=== PATIENT | female | born 1940 | race Caucasian/White ===

== ENCOUNTER → 2020-05-15 11:16 | Outpatient (CLI) | payer MEDICARE, OTHER, SELFPAY ==
--- NOTE | 2020-05-15 | DI.MRI.S_ITS ---
PROCEDURE: MR KNEE RT WO CON INDICATIONS: Bilateral primary osteoarthritis of knee TECHNIQUE: Noncontrast sagittal PD fast spin echo and T2 fast spin echo with fat saturation, sagittal 3-D FLASH with fat saturation; coronal T1 spin echo and PD fast spin echo with fat saturation, and axial PD fast spin echo with fat saturation through the knee. COMPARISON: None. FINDINGS: Image quality: Excellent. Menisci: Medial meniscal tear involving the body with abnormal signal extending to the undersurface, superior articular surface and partial extrusion. Lateral meniscus intact. Cruciate ligaments: Anterior cruciate ligament appears intact. Posterior cruciate ligament appears intact. Medial structures: There is medial bowing of the medial collateral ligament, with mild internal signal changes and no complete rupture. There is adjacent soft tissue edema. The appearance could reflect reactive changes to medial compartment pathology, versus low-grade sprain of the MCL. Pes anserinus tendons appear grossly unremarkable. Semimembranosus tendon appears intact. Lateral structures: The lateral collateral ligament intact. Biceps femoris tendon appears intact. Popliteus tendon grossly unremarkable. Iliotibial band appears intact. Anterior structures: Quadriceps tendon intact. Medial and lateral patellofemoral ligaments intact. Mild diffuse patellar tendinopathy with adjacent soft tissue edema. Hoffa's fat pad unremarkable. Bones and cartilage: No focal marrow contusion or discrete low signal fracture line. Within the medial compartment, full-thickness femoral and tibial articular cartilage loss with subchondral marrow edema. Within the lateral compartment, diffuse partial-thickness loss of the femoral and tibial cartilage with intrasubstance signal changes of the central weight-bearing cartilage of the femoral condyle. Within the patellofemoral compartment, full-thickness loss of the cartilage overlying the median patellar ridge and medial patellar facet. Mild subchondral marrow signal changes. Mild surface fraying of the femoral trochlear cartilage. Joint space: Small joint effusion. 6-7 Ballesteros's cyst. Low signal presumed loose body seen within Ballesteros's cyst image 23/6 measuring 5 mm. Possible debris seen within the suprapatellar recess, for example image 15/6. IMPRESSION: Medial meniscal tear involving the body with partial extrusion. Severe degenerative joint disease most pronounced in the medial and patellofemoral compartments. Small joint effusion Large Ballesteros's cyst Loose bodies and/or debris seen within the Ballesteros's cyst and suprapatellar recess as above. Dictated by: Arsenio Chavez M.D. on 05/15/2020 at 14:13 Approved by: Arsenio Chavez M.D. on 05/15/2020 at 14:22
== END ==
PROVIDERS: Family Provider Family Medicine; PCP Family Medicine; Referring Provider Orthopaedic Surgery; Visit Provider Orthopaedic Surgery
DX: M17.0 Bilateral primary osteoarthritis of knee (principal); S83.241A Other tear of medial meniscus, current injury, right knee, initial encounter; M25.461 Effusion, right knee; M71.21 Synovial cyst of popliteal space [Baker], right knee
CPT/HCPCS: 73721

== ENCOUNTER → 2021-01-17 12:58 | Outpatient (CLI) | payer MEDICARE, OTHER, SELFPAY ==
[2021-01-17 15:47] LABS: COVID19 -Nasal RAPID Negative (Negative)
== END ==
PROVIDERS: Family Provider Family Medicine; PCP Family Medicine; Visit Provider Family Medicine
DX: Z01.812 Encounter for preprocedural laboratory examination (principal); Z20.822 Contact with and (suspected) exposure to COVID-19
CPT/HCPCS: 87635; C9803

== ENCOUNTER 2021-01-18 09:30 | Day surgery (SDC) | payer MEDICARE, OTHER, SELFPAY ==
[2021-01-15 09:37] VITALS: BMI 26.5
[2021-01-18] VITALS (17 sets, daily range): BP systolic 96–143; BP diastolic 48–78; PULSE 62–77; RESP 12–18; TEMP 35.7–36.9; O2SAT 91–98; BMI 26.5
--- NOTE | 2021-01-18 | DI.RAD.S_ITS ---
PROCEDURE: XR HIP W PEL IF DONE LT 2V INDICATIONS: POST OP TECHNIQUE: AP pelvis with lateral view(s) of the left hip(s). COMPARISON: [facility], JOSE JUAN, XR PELVIS 1-2V, 01/18/2021, 14:02. FINDINGS: Bones: Status post bilateral hip arthroplasty. Hip arthroplasties appear normally. No fractures or dislocations. Pelvic ring appears intact. No suspicious bony lesions. Soft tissues: The visualized bowel gas pattern is normal. No suspicious soft tissue calcifications. IMPRESSION: Expected appearance of bilateral hip arthroplasties. Dictated by: Keenan Painting M.D. on 01/18/2021 at 16:25 Approved by: Keenan Painting M.D. on 01/18/2021 at 16:26
--- NOTE | 2021-01-18 | DI.RAD.S_ITS ---
PROCEDURE: XR PELVIS 1-2V INDICATIONS: INTER OP TECHNIQUE: Intra-operative view of the pelvis and hip acquired. COMPARISON: None. FINDINGS: Bones: Intraoperative devices prior to placement of arthroplasty prostheses are in expected positions. No fractures or suspicious bony lesions. Soft tissues: Overlying surgical retractors are present, along with other intraoperative changes. IMPRESSION: Expected intraoperative alignment Dictated by: Arsenio Chavez M.D. on 01/18/2021 at 15:53 Approved by: Arsenio Chavez M.D. on 01/18/2021 at 15:53
[2021-01-18] MEDS: LACTATED RINGERS 1,000 ML 42 ML IV ×2 (10:39→14:34)
[2021-01-18] MEDS: VANCOMYCIN 1,000 MG/200 ML PIGGYBACK 200 MG IV (11:38)
--- NOTE | 2021-01-18 12:19 | PM.PREOP ---
Pre-operative Note COVID-19 COVID-19 status: Negative Interval Note History & Physical reviewed/Exam performed by Physician: Yes Changes to H&P: No
[2021-01-18] MEDS: TRANEXAMIC ACID 1,000 MG VIAL 1000 MG INJ ×2 (13:19→14:51)
[2021-01-18] MEDS: CEFAZOLIN 1 GM VIAL 2 GM IV ×2 (13:19→20:38)
--- NOTE | 2021-01-18 13:33 | SUR.OPER ---
Supine on padded [place] table with bilateral legs secured in padded positioning boots and suspended in positioning spars, operative leg in traction per surgeon. Head on one pillow. Arm on non-operative side secured on padded armboard <90 degrees abduction. Arm on operative side padded and resting across chest then secured with tape over sheet. Padded perineal post in place per surgeon.
[2021-01-18] MEDS: BUPIVACAINE LIPOSOME 266 MG/20 ML VIAL INJ (13:41)
[2021-01-18] MEDS: BUPIVACAINE 0.5% W/ EPI (PF) 30 ML VIAL INJ (13:42)
[2021-01-18] MEDS: SODIUM CHLORIDE IRRIG SOLUTION 250 ML, POVIDONE-IODINE SPONGE STICKS 1 APPLIC IRR (13:43)
--- NOTE | 2021-01-18 15:44 | P.OP_ITS ---
Operative Date/Time/Diagnoses Date of procedure: 01/18/21 Time of procedure: 13:34 Pre-op diagnosis: Left hip OA Post-op diagnosis: same Procedure & Clinicians Procedure: Left total hip replacement anterior approach Same procedure as scheduled: Yes Indications: The patient has had progressively worsening left hip pain with radiographic changes consistent with arthritis. Non-operative management has failed and the patient has requested total hip replacement. The risks, benefits and alternatives to surgery were discussed with the patient prior to proceeding. Risks discussed included, but were not limited to, failure to relieve pain, leg length discrepancy, dislocation, stiffness, infection, nerve damage, deep venous thrombosis, pulmonary embolism, stroke, coma, heart attack, permanent paralysis and , as well as the potential need for eventual revision of the prosthetic. Surgeon: Breanne Butt Director Of Vocational Training: Jose Daniel Reddy Anesthesia Type: General and Spinal Operative Notes Findings: Severe left hip osteoarthritis, good stability, soft bone Closure Type: primary Specimen(s): none sent Prosthetic devices, grafts, tissues, transplants, or devices: Butt [employer] Nephew 48 mm R3 cup, size 4 standard anthology, +0 femoral head, one 6.5 mm screw Estimated Blood Loss (mL): 250 Procedure in detail: The patient was brought to the operating room. Patient was carefully positioned in the supine position. Time-out was performed and antibiotics were given. Anesthesia was induced. She was positioned in the on the table in order to allow hyperextension of the hip. The left lower extremity was prepped and draped in a standard sterile fashion. An anterior left hip incision was made 1 fingerbreadth lateral to the anterior superior iliac spine and extended distally towards the greater trochanter. Dissection was carried out through skin and subcutaneous tissues. The skin and subcutaneous tissues were carefully injected with Lidocaine with epi. Superficial hemostasis was achieved. The fascia over the tensor fascia kelly was defined and incised with a knife. Two Allis clamps were used to grasp the fascia. Tensor fascia kelly was retracted laterally. A gelpi retractor was placed. Dissection was carried out down along the neck. The circumflex vessels were carefully identified and cauterized with the Aqua Mantis. There was good visualization of the femoral neck. A Cobra was placed superior to the neck and the gluteus fibers were carefully stripped from that superior aspect of the capsule. A 2nd retractor was placed along the inferior aspect of the neck. The rectus insertion along the capsule was partially released. A 3rd retractor that was then gently placed over the rim of the acetabulum under the rectus. Capsule was carefully incised and released from the intertrochanteric line circumferentially superior to the mid sagittal line and inferiorly to the mid sagittal line until the lesser trochanter was palpable. A tag stitch was placed both in the superior and inferior limb of the capsular insertion. Along the acetabulum capsule was also released up to the mid sagittal 12:00 position. A portion of the labrum was resected. A saw was used to perform an osteotomy at the level of the intertrochanteric line and the junction of the superior femoral neck leaving approximately 1 finger breath of residual inferior neck above the lesser trochanter. A 2nd cut was made along the femoral neck at the base of the head and a napkin ring of neck was removed. Corkscrew was placed in the femoral head and the head was removed without difficulty. Retractors were then repositioned around the acetabulum. Residual labrum was resected and additional osteophytes were removed. A reamer that was 4 mm below the templated size was placed by hand in the acetabulum and it was reamed to centralize the acetabulum. It was then reamed up to 2 under the templated size and fluoroscopy was brought in to confirm the position of the reaming and depth of reaming. I reamed 1 under the anticipated size. A trial cup was placed and noted that it was appropriately sized and fluoroscopy confirmed position and depth. The component was open and inserted without difficulty fluoroscopic imaging was used to confirm that the cup had been adequately seated and was well positioned. It was further stabilized with a single screw. Neutral poly liner was placed. The cup was tested and noted to be stable. Attention was then directed to the femur. The femur was gently hyperextended additional capsular release was performed as needed in order to allow adequate visualization of the proximal femur with elevation of the femur. Patient was placed in a hyperextended slightly adducted position with maximum external rotation. Box osteotome was used to check for any residual neck as well as sclerotic bone along the trochanter. [place] pepper was placed in the femur. Additional broaching was performed. Canal finder was used to determine the alignment of the canal and position. Size 1 broach was placed. The canal was then appropriately broached up to the templated size as long as there was adequate stability of the broach and serial advancement of the broach without excessive impingement. Specific attention was directed at avoiding varus attempting to direct the distal aspect of the broach more anteriorly and avoiding excessive anteversion. Trial reduction showed acceptable range of motion, good stability, no posterior impingement, episcopalian of leg length and appropriate lateral shuck. I also hyperflexed the hip and checked that there was no impingement anteriorly and there was good stability with flexion, adduction and internal rotation. Marcaine and Exparel were injected. The stem was placed without difficulty. Repeat trial reduction and x-ray showed acceptable overall position, length, and no evidence of the femoral fracture. Final head was placed. Wound was meticulously irrigated with normal saline. The hip was reduced and additional Exparel and Marcaine were injected. The capsule was closed with interrupted nonabsorbable sutures. The fascia of the tensor was closed with interrupted and running Vicryl. No drain was placed. Any tensor fascia kelly muscle that appeared to be contused or injured which was a minimal amount was carefully resected. Capsule around the tensor was injected with Exparel and Marcaine. The skin was closed with barbed stitches for the subcutaneous tissue and skin. We also used surgical glue. The wound was dressed sterilely. Brief Betadine soak was also used and was meticulously irrigated with normal saline. Patient was transferred to recovery room in satisfactory condition. Complications: none Post-operative Condition: stable Disposition: Acute Care Plan for aftercare: The patient will be maintained on a standard total hip replacement protocol with weight bearing as tolerated and anterior hip precautions. The patient will receive Aspirin and sequential compression devices for DVT prophylaxis. The patient will be discharged home when safe for the home environment.
--- NOTE | 2021-01-18 15:54 | SUR.PHASEI ---
Attempted to call report and no one was able to take it. Will await for RN from upstairs to call back.
--- NOTE | 2021-01-18 16:10 | SUR.PHASEI ---
Continuing to wait to call report for pt. RN on floor unable to take report due to being busy.
[2021-01-18] MEDS: LACTATED RINGERS 1,000 ML 125 ML IV (17:37)
[2021-01-18] MEDS: IBUPROFEN 400 MG TABLET PO (17:38)
[2021-01-18] MEDS: ONDANSETRON 4 MG/2 ML INJ IV (19:21)
--- NOTE | 2021-01-18 20:05 | PC.NURSE ---
Addendum entered by Natalia Nrowood R.N. 01/18/21 23:43: Emesis totaling three this evening shift. Up to bathroom with EYEGLASS CUTTER to void. Spouse rooming in overnight. Room air 89%. I.S. provided and teaching completed. 02 2L nc placed and oxygen level increase to 92%. Zofran iv and SL given. Original Note: 1620 Pt to room 224 from PACU awake, alert, conversant. Spouse arrives shortly thereafter and is in room with pt. Pt on trial of room air 93%. Admits to pain in opposing hip (right). Aquacel dressing to left anterior hip is dry and intact. BL calf scd's in place. Denies nausea. Took evening meal well and then proceeded to have large emesis. Encouraged to proceed slowly with further po intake and zofran administered. Instructed pt several times not to attempt out of bed without calling for staff assistance. Pt verbalizes understanding and agreement (as well as spouse).
[2021-01-18] MEDS: ONDANSETRON 4 MG ODT PO (22:56)
[2021-01-19] MEDS: IBUPROFEN 400 MG TABLET PO ×3 (01:20→10:34)
[2021-01-19] MEDS: CEFAZOLIN 1 GM VIAL 2 GM IV (04:40)
[2021-01-19] MEDS: ONDANSETRON 4 MG ODT PO ×2 (04:49→09:02)
[2021-01-19 05:31] VITALS: BP 100/60; PULSE 68; RESP 16; TEMP 36.2; O2SAT 95
[2021-01-19 07:19] LABS: Hematocrit 34.7 % (36-46); Hemoglobin 11.7 g/dL (12.0-16.0)
--- NOTE | 2021-01-19 07:41 | PC.NURSE ---
Assess- Patient up to the bathroom with walker and one person assist. She voided 225cc of yellow urine. The plan will be to give her zofran odt before she takes her medications. Dressing to hip is cdi with aquacel in place, no drainage noted.
[2021-01-19 08:00] VITALS: BP 105/62; PULSE 72; RESP 17; TEMP 36.2; O2SAT 99
--- NOTE | 2021-01-19 10:35 | PT.IIE ---
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) History of total right hip arthroplasty Hx of bilateral cataract extraction Hx of tonsillectomy Medical History (Last Updated 01/15/21 @ 10:14 by Steffanie Bernabe RN) Chronic back pain Difficulty swallowing (~2016) History of esophageal dilatation HLD (hyperlipidemia) Physical Therapy Inpatient Evaluation/Re-Eval M1 PT/OT-IP Prior Functional Status Start: 01/19/21 13:16 Freq: NEEDED Status: Active Protocol: Document 01/19/21 10:35 AB (Rec: 01/19/21 13:28 AB [id number]) Medical Review Prior Functional Status Medical History Reviewed Yes Communication able to make needs known Mobility and Gait pt stated that she is independent with all mobilities and ambulation without AD Social History Household Members spouse Living Arrangements House Number of Floors (Floors) One Floor Number of Stairs To Enter/Railing? 2 steps without rails to enter Home Environment Standard Height Toilet,Walk in Shower Home Equipment Front Wheel Walker,Shower Seat without Backrest,Grab Bars In Shower Additional Social History Comment pt has a hurrycane M2 PT-IP Current Condition Start: 01/19/21 13:16 Freq: NEEDED Status: Active Protocol: Document 01/19/21 10:35 AB (Rec: 01/19/21 13:28 AB [id number]) Physical Therapy Current Condition Current Condition Evaluation Date 01/19/21 Treatment Diagnosis s/p L AURELIO anterior approach; difficulty in walking Onset Date 01/18/21 Precautions Anterior Hip Precautions No Hip Extension,No Hip External Rotation Weight Bearing Status Weight Bearing Status Weight Bear as Tolerated Allowed Weight Bearing Amount (enter % LLE WBAT or #) (%) M3 PT-IP Subjective Start: 01/19/21 13:16 Freq: NEEDED Status: Active Protocol: Document 01/19/21 10:35 AB (Rec: 01/19/21 13:28 [id number]) Subjective Physical Therapy Visit Type Type Initial Evaluation Visit Start Time 10:35 Visit Stop Time 11:40 Total Visit Minutes 65 Number of FILLER IN Visits 0 Physical Therapy Visit Comments Patient Comments pt is agreeable to do PT; spouse in room with pt Therapy Pain Assessment Pain When Pain Assessed At Rest Pain Present Pain Present Pain Reported Location Right Hip Intensity 4 Scale Used Numeric (0 - 10) Pain Management Techniques Distraction,Modification of Treatment,Re-positioning, Timing of Activity with Medications M4 PT-IP Mobility and Gait Start: 01/19/21 13:16 Freq: NEEDED Status: Active Protocol: Document 01/19/21 10:35 AB (Rec: 01/19/21 13:28 [id number]) PT-Bed Mobility Assessment Supine to Sit Supine to Sit Standby Assistance Sit to Supine Sit to Supine Standby Assistance PT-Transfer Assessment Sit to and From Stand Sit to and from Stand Contact Guard Assistance,1 Person Assistance,Use of Upper Extremities Equipment Transfer Assistive Device Bed Rail,Front Wheeled Walker Orthotic/Prosthetic Devices or Brace: No Transfers Transfer Destination Bed Transfer Technique Stand Step Pivot Transfer Ability Level of Assist Contact Guard Assistance,1 Person Assistance,Use of Upper Extremities Comments Mobility Comments educated pt and spouse regarding hip precautions. pt completed sit to stand from chair CGA and ambulated in room ~ 15 ft CGA and cues to maintain hip precautions. ambulated to the bed and completed sit<>supine SBA and cues. pt transferred to chair CGA using FW. caregiver training conducted. educated spouse on how to use safety belt and how to assist pt. spouse was able to put safety belt on pt and assisted pt up and ambulation using FWW ~ 75 ft provided CGA. stair climbing training conducted. educated spouse and pt regarding technique for stair climbing. pt completed stairs x 3 steps using hurrycane and CYLINDRICAL MIXER mod A and initial cues provided by PT for safety but spouse was able to cue on last set as needed. pt ambulated back to her room using FWW ~ 40 ft CGA. positioned on chair. call light and table placed within reach. Gait Assessment Gait Gait Assistance Required: Contact Guard Assist Distance (Feet) 75 Able to Maintain Weight Bearing Status Yes During Gait Assistive Devices Assistive Device Gait Belt,Front Wheeled Walker Orthotic/Prosthetic Devices or Brace: No Gait Deviations General Gait Pattern Antalgic,Decreased Stride Length,Decreased Feet Clearance Factors Limiting Gait Function Factors Limiting Gait Function Decreased Activity Tolerance, Decreased Strength,Difficulty Following Directions,Limited Range of Motion,Pain,Poor Balance,Poor Safety Awareness Stair Climbing Assessment Evaluation Level of Assist On Stairs Moderate Assistance,1 Person Assistance Devices Stair Climbing Assistive Devices Tripod Cane/Hurry Cane Technique/Endurance Stair Climbing Direction Ascend and Descend Stair Climbing Technique Step to Step Number of Steps Climbed 1 Query Text: Stair Climbing Set # Repetitions (reps) 3 PT-Balance Assessment Sitting Balance and Reactions Static Sitting Balance Ability Good Dynamic Sitting Balance Ability Good Standing Balance and Reactions Static Standing Balance Ability Fair Dynamic Standing Balance Ability Fair Device Used FWW M5 PT-IP Objective Assessments Start: 01/19/21 13:16 Freq: NEEDED Status: Active Protocol: Document 01/19/21 10:35 AB (Rec: 01/19/21 13:28 AB [id number]) Orientation Orientation/Cognition Level of Alertness Alert Orientation Name,Place,Situation Safety Awareness Decreased Safety Awareness Memory Description Short Term Impaired Gross Range of Motion Lower Extremity ROM Assessment Within Functional Limits Strength Lower Extremity Strength Assessment Left Impaired Hip 3+/5 Knee 4-/5 Coordination Assessment Gross Coordination Gross Coordination WNL Sensation Assessment Sensation Gross Sensation WNL Muscle Tone Muscle Tone WNL Yes M6 PT-IP Treatment Start: 01/19/21 13:16 Freq: NEEDED Status: Active Protocol: Document 01/19/21 10:35 AB (Rec: 01/19/21 13:28 AB [email or web address]) Physical Therapy Treatment Education Education Provided Safety M7 PT-IP Assessment and Plan Start: 01/19/21 13:16 Freq: NEEDED Status: Active Protocol: Document 01/19/21 10:35 AB (Rec: 01/19/21 13:28 AB [email or web address]) PT Summary Assessment and Plan Potential Rehabilitation Potential Good Status of Condition at Evaluation Stable Summary Impairments Pain,ROM,Strength,Balance, Coordination,Sensation,Tone, Cognition,Bed Mobility, Transfers,Gait,Activity Tolerance Assessment Summary pt requiring CGA for mobility using FWW for ambulation; required mod A for stair climbing using hurrycase and CYLINDRICAL MIXER. caregiver training completed and spouse is able to assist pt. will continue to assess progress. pt stated that she is set up for outpt PT. Goals Bed Mobility Goal Independent Transfer Goal Independent,Front Wheeled Walker Gait Goal Independent,Front Wheel Walker Gait Distance 100 Other Goals upd/own 2 steps without rails using hurrycane/CYLINDRICAL MIXER CGA Days to Meet Goals 5 Frequency of Treatment Frequency Of Treatment Twice a Day Treatment Plan Physical Therapy Treatment Plan Bed Mobility Training,Transfer Training,Gait Training, Therapeutic Exercise,Balance Retraining,Post Op Education, Discharge Planning,Hot or Cold Pack,Neuromuscular Re-ed, Coordination Retraining,Manual Therapy Precautions Anterior Hip Precautions No Hip Extension,No Hip External Rotation Other Precautions LLE WBAT Recommendations To Nursing Amount of Assist Needed 1 Person Assist Discharge Recommendations PT Discharge Recommendations Home with Assistance, Outpatient PT Transportation Needs at Discharge Private Vehicle
[2021-01-19 10:36] VITALS: O2SAT 99
[2021-01-19] MEDS: ASPIRIN EC 81 MG TABLET PO (10:36)
[2021-01-19] MEDS: PANTOPRAZOLE DR 20 MG TABLET PO (10:37)
[2021-01-19] MEDS: DOCUSATE 100 MG CAPSULE PO (10:37)
[2021-01-19] MEDS: ACETAMINOPHEN 325 MG TABLET 650 MG PO (10:37)
[2021-01-19] MEDS: SOLIFENACIN 5 MG TABLET PO (10:38)
[2021-01-19 12:00] VITALS: BP 99/57; PULSE 79; RESP 18; TEMP 36.5; O2SAT 96
--- NOTE | 2021-01-19 14:08 | P.DS_ITS ---
History of Present Illness History of Present Illness Date Patient Seen: 01/19/21 Time Patient Seen: 14:08 Chief complaint: OPB Narrative: Theresa is a 80-year-old female that underwent a left total hip arthroplasty with Dr. Butt on 01/18/2021. For hip arthritis Discharge Providers Provider Discharge Date: 01/19/21 Primary care physician: Kenton Rojo MD Consults: 01/18/21 12:43 Consult to Anesthesiology Routine Comment: Consulting Provider: Anesthesiologist Reason for consultation: Regional block for post operative pain control 01/18/21 16:53 Consult to Discharge Planning Routine Comment: Consult to Physical Therapy Evaluate & Treat Comment: Physician Instructions: post op AURELIO protocol Consult to Respiratory Therapy Evaluate & Treat Comment: Physician Instructions: Evaluate and treat Discharge provider: Vidhi Patton MD Summary Hospital Course Discharge Diagnosis: Left hip arthritis Hospital Course: Admitted to the floor postoperatively for left AURELIO. He did extremely well work with physical therapy was stable for discharge home postoperative day 1 Status at Discharge Cognitive/behavioral status at discharge: oriented Functional status at discharge: uses cane/walker Overall status at discharge: patient is progressing back to baseline Time Spent with Patient Time spent: Less than 30 minutes Exam Vital Signs (past 8 hours): - 01/19/21 08:00 01/19/21 10:36 01/19/21 12:00 Temperature 97.2 F L 97.7 F Pulse Rate 72 79 Respiratory Rate 17 18 Blood Pressure 105/62 99/57 L Pulse Oximetry 99 99 96 Oxygen Delivery Method Room Air Oxygen Flow Rate 0 Narrative Exam Narrative: Alert oriented no acute distress General exam alert oriented no acute distress HEENT normocephalic atraumatic. Respiratory rate normal and no increased effort. Regular rate and rhythm. Left hip demonstrates 5/5 dorsiflexion plantar flexion. Some numbness around the hip incision otherwise intact. Calf soft calf. Aquacel dressing in place. No erythema Objective Labs Result Diagrams: 01/19/21 07:07 Labs: Laboratory Results - last 24 hr 01/19/21 07:07 Hgb 11.7 L Hct 34.7 L PFSH Medical History Chronic back pain Difficulty swallowing (~2016) History of esophageal dilatation HLD (hyperlipidemia) Surgical History History of arthroplasty of right shoulder History of colonoscopy (2017) History of esophagogastroduodenoscopy (EGD) (2017) History of hysterectomy History of prosthetic unicompartmental arthroplasty of right knee (05/2020) History of total right hip arthroplasty Hx of bilateral cataract extraction Hx of tonsillectomy Social History household members: spouse Smoking Status: Former smoker alcohol intake: current Discharge Assessment & Plan Assessment and Plan Assessment: Postop day 1 left total hip doing well appropriate for discharge home Plan of Treatment: Discharge home. Will start outpatient therapy. Follow up with Orthopedics in 2 weeks. May shower otherwise keep dressing in place. Aspirin for DVT prophylax is Discharge Plan Discharge Plan Patient Disposition: Home Discharge orders & Medications Discharge Orders: Discharge (Order); Ordered 01/19/21 Ordered By: Vidhi Patton Prescriptions: New aspirin 81 mg Tablet,Delayed Release (Dr/Ec) 81 mg PO BID 42 Days Qty: 84 RF: 0 docusate sodium [DOK] 100 mg Capsule 100 mg PO BID Qty: 30 RF: 1 oxycodone 5 mg Tablet 5 mg PO Q3HR PRN (Reason: Pain, Moderate (4-6)) Qty: 42 RF: 0 Continued aspirin 81 mg Tablet,Delayed Release (Dr/Ec) 81 mg PO Q OTHER DAY RF: 0 acetaminophen 500 mg Tablet 1,000 mg PO DAILY RF: 0 simvastatin 20 mg Tablet 20 mg PO BEDTIME RF: 0 diphenhydramine HCl [Benadryl] 25 mg Capsule 12.5 mg PO BEDTIME RF: 0 omeprazole 20 mg Capsule,Delayed Release(Dr/Ec) 20 mg PO DAILY RF: 0 solifenacin [Vesicare] 5 mg Tablet 5 mg PO DAILY RF: 0 diclofenac sodium [Voltaren Arthritis Pain] 1 % Gel 2 g TOPICAL BID RF: 0 naproxen sodium [Aleve] 220 mg Capsule 220 mg PO DAILY RF: 0 Follow up/Referrals: Kenton Rojo MD [Primary Care Provider] - Diet/Activity/Treatments Diet: Diet as Tolerated Skin/Wound/Dressing Care Report to your healthcare provider any signs of infection, such as:: chills, fever, night sweats, increased pain, unusual drainage and unusual redness Dressing: keep aquacell dressing in place. okay to shower Visit Report/Discharge Packet Instructions: DI for Hip Replacement, How to Prevent Falls, Ibuprofen, Aspirin Discharge Data Primary Care Provider: Kenton Rojo Attending Provider: Breanne Butt VTE Deep Vein Thrombosis/Pulmonary Embolism Present on Admission: No
--- NOTE | 2021-01-19 15:44 | CM.IDA ---
Initial DCP Assessment Note Pt is a 80 yo female, resident of [place], now POD#1 from p Total Hip Arthroplasty/Anterior Approach(Left) - Breanne Butt MD PCP: Kenton Rojo Payer: [facility] Reviewed chart, pt discussed in multidisciplinary rounds this morning. Therapy has cleared pt for return home w/family to assist and pt has planned for home, DC order from Ortho now in and patient eager to DC w/spouse to assist No needs from DC planning team. Home w/spouse and outpatient PT HOMER Linda
[2023-03-25 15:24] VITALS: BMI 26.5
== END 2021-01-19 14:34 | disposition home or self-care (01) ==
LOC: OR 09:37 → AC 16:36
PROVIDERS: Family Provider Family Medicine; PCP Family Medicine; Referring Provider Orthopaedic Surgery; Visit Provider Orthopaedic Surgery
PROC: (CPT 27130; principal; 2021-01-18 11:30)
DX: M16.12 Unilateral primary osteoarthritis, left hip (principal); M81.0 Age-related osteoporosis without current pathological fracture
CPT/HCPCS: 27130; 36415; 72170; 73502; 76000; 85014; 85018; 94762; 97161; 97530; C1776; C9290; J0690; J1100; J2250; J2274; J2405; J2704; J3010

== ENCOUNTER → 2021-06-12 10:49 | Outpatient (CLI) | payer MEDICARE, OTHER, SELFPAY ==
[2021-01-18 16:53] VITALS: BMI 26.5
--- NOTE | 2021-06-12 10:51 | DI.RAD.S_ITS ---
PROCEDURE: FL BARIUM SWALLOW INDICATIONS: dysphagia COMPARISON: None. FINDINGS: Function: There is normal esophageal peristalsis. There was gastroesophageal reflux which occurred without provocative maneuvers. Swallowing reflex is normal. No laryngotracheal penetration or jose aspiration. No pathologic pooling in the vallecula or piriform sinuses. There is normal transit of a calibrated barium tablet through the esophagus into the stomach. Morphology: Small hiatal hernia is noted. There is mucosal irregularity along the anterior-superior margin of the hiatal hernia. Single contrast views show no esophageal strictures, extrinsic mass effects, or diverticula. Limited images of the stomach demonstrate normal appearance. IMPRESSION: 1. Gastroesophageal reflux. 2. Hiatal hernia. There is mucosal irregularity involving the anterior-superior margin of the hiatal hernia which could be related to inflammatory or neoplastic process. Recommend endoscopy for definitive characterization. Dictated by: Jeanette Desai MD, PhD on 06/12/2021 at 15:24 Approved by: Jeanette Desai MD, PhD on 06/12/2021 at 15:28
[2021-06-12 12:47] LABS: Add Manual Diff / Slide Review NO; Basophils Absolute Auto 0 /uL (0-100); Basophils Percent Auto 0.3 % (0-2); Eosinophils Absolute Auto 100 /uL (0-450); Eosinophils Percent Auto 1.7 % (2-4); Hematocrit 42.1 % (36-46); Hemoglobin 13.9 g/dL (12.0-16.0); Lymphocytes Absolute Auto 1900 /uL (1100-4500); Lymphocytes Percent Auto 35.1 % (25-40); Mean Corpuscular HGB Conc 33.1 % (30-36); Mean Corpuscular Hemoglobin 30.8 PG (26-34); Mean Corpuscular Volume 93.1 fL (80-100); Monocytes Absolute Auto 400 /uL (0-900); Monocytes Percent Auto 6.8 % (3-14); Neutrophils Absolute Auto 3100 /uL (1500-7000); Neutrophils Percent Auto 56.1 % (50-75); Platelet Count 215 X10^3/uL (150-400); Red Blood Cell Count 4.53 X10^6/uL (4.0-5.2); Red Cell Distribution Width 14.3 % (11.6-14.8); White Blood Cell Count 5.5 X10^3/uL (4.5-11.0)
[2021-06-12 13:05] LABS: Alanine Aminotransferase 16 IU/L (<35); Albumin 4.6 g/dL (3.5-5.0); Albumin Globulin Ratio 1.6 (1.0-2.8); Alkaline Phosphatase 80 U/L (38-126); Aspartate Aminotransferase 29 IU/L (14-36); BUN Creatinine Ratio 22.6 (6-22); Bilirubin Total 0.8 mg/dL (0.2-1.3); Blood Urea Nitrogen 12 mg/dL (7-17); Calcium 9.6 mg/dL (8.4-10.2); Carbon Dioxide 29 mmol/L (22-32); Chloride 100 mmol/L (98-107); Estimated Glomerular Filt Rate > 60.0 mL/min (>60); Globulin 2.8 g/dL (1.7-4.1); Glucose 102 mg/dL (80-110); HEMOLYSIS < 15 (0-50); Potassium 4.1 mmol/L (3.4-5.1); Sodium 137 mmol/L (137-145); Total Protein 7.4 g/dL (6.3-8.2)
== END ==
PROVIDERS: Family Provider Family Medicine; PCP Family Medicine; Referring Provider Surgery; Visit Provider Surgery
DX: R13.10 Dysphagia, unspecified; R07.89 Other chest pain; K44.9 Diaphragmatic hernia without obstruction or gangrene; K21.9 Gastro-esophageal reflux disease without esophagitis
CPT/HCPCS: 36415; 74220; 80053; 85025; 93005; 93010

== ENCOUNTER → 2021-06-20 13:34 | Outpatient (CLI) | payer MEDICARE, OTHER, SELFPAY ==
[2021-01-18 16:53] VITALS: BMI 26.5
[2021-06-20 14:28] LABS: COVID19 -Nasal RAPID Negative (Negative)
== END ==
PROVIDERS: Family Provider Family Medicine; PCP Family Medicine; Visit Provider Surgery
DX: Z01.812 Encounter for preprocedural laboratory examination (principal); Z20.822 Contact with and (suspected) exposure to COVID-19
CPT/HCPCS: 87635; C9803

== ENCOUNTER 2021-06-21 07:34 | Day surgery (SDC) | payer MEDICARE, OTHER, SELFPAY ==
[2021-01-18 16:53] VITALS: BMI 26.5
[2021-06-21] VITALS (7 sets, daily range): BP systolic 110–133; BP diastolic 63–78; PULSE 70–87; RESP 12–16; TEMP 36–36.4; O2SAT 88–100
--- NOTE | 2021-06-21 | PATH_ITS ---
[facility] Accession Number: [id number] . 01 Material submitted: . gastrointestinal site - GASTRIC POLYP BIOPSY . 01 Clinical history: . SDC . 02 Diagnosis: Gastric Polyp Biopsy: Portions of fundic gland polyp x3. No evidence of Helicobacter organisms on H/E stain. Negative for intestinal metaplasia. Negative for dysplasia and malignancy. MRV 06/25/2021 1621 Local . 02 Electronically signed: . Kylee Andrew MD, Pathologist NPI- [id number] . 01 Gross description: . GASTRIC POLYP BIOPSY: Received in formalin are 3 fragment(s) of aguilera, soft tissue measuring 0.5 x 0.2 x 0.1 cm to 0.3 x 0.1 x 0.1 cm submitted entirely in 1 cassette(s) /MARK 06/22/2021 0422 Local . 02 Pathologist provided ICD-10: R13.10, K31.7 . 02 CPT . 724630 Performed at: 01 [facility] [address], [place], [place] [id number] MD Arley Guzman MD Phone: [phone] Performed at: 02 [facility] [address] [place], [place] [id number] MD Jacki Walker MD Phone: [phone]
[2021-06-21] MEDS: LACTATED RINGERS 1,000 ML 42 ML IV (09:03)
--- NOTE | 2021-06-21 09:49 | PM.PREOP ---
Pre-operative Note COVID-19 COVID-19 status: Negative Result date/Date tested (Pos, Neg/Pending): 06/20/21 Interval Note History & Physical reviewed/Exam performed by Physician: Yes Changes to H&P: No ASA Class (for procedural sedation): II
[2021-06-21] MEDS: LIDOCAINE 4% SOLN 50 ML 20 ML TOP (09:50)
[2021-06-21] MEDS: fentaNYL 250 MCG/5 ML INJ IV (09:53)
[2021-06-21] MEDS: MIDAZOLAM 5 MG/5 ML VIAL IV (09:58)
--- NOTE | 2021-06-21 10:02 | PM.OP.EGD ---
Operative Date/Time/Diagnoses Date of procedure: 06/21/21 Time of procedure: 10:02 Pre-op diagnosis: Abnormal imaging Post-op diagnosis: same Procedure & Clinicians Study performed: Esophagogastroduodenoscopy Same procedure as scheduled: Yes Indications: Abnormal barium swallow study Surgeon: Jimmie Agarwal Procedure Notes SCOAP/Timeout: Performed Procedure in detail: Patient was brought to the endoscopy suite placed in the left lateral decubitus position. She was connected to vital sign monitors and a bite block was placed between the teeth. A time-out was performed. Conscious sedation was administered with a combination of Versed fentanyl. 50 micro g of fentanyl and 4 mg of Versed were used. Once patient was adequately sedated, the endoscope was inserted and advanced under direct vision. The scope was inserted to the 2nd portion of the duodenum. The duodenal mucosa was normal. A photograph was taken. The scope was then slowly withdrawn and the duodenal bulb was inspected. No abnormalities were noted. The scope was withdrawn into the stomach and the antrum was inspected. There was no antritis or evidence ulceration. The body of the stomach was inspected. There were multiple gastric polyps of varying size consistent with fundic gland polyps. Multiple biopsies were taken using the forceps from several of the polyps. The scope was retroflexed and a moderate hiatal hernia was noted. The scope was withdrawn and the hiatal hernia was inspected directly. The hiatal hernia was approximately 4 cm in length from the diaphragmatic indentation to the Z-line. The Z-line was normal. There was no esophagitis or evidence of Espinal's esophagus. The scope was withdrawn and the remainder of the esophagus was inspected and normal. The scope was removed. Biopsies: Gastric polyps Sedation minutes: 7 Findings: hiatal hernia and other findings (Gastric polyps) Specimen(s): other (Gastric polyps) Complications: none Impression: Moderate hiatal hernia, multiple gastric polyps Post-procedure Recommendations: Will call with biopsy results Follow up: as needed Disposition: PACU
== END 2021-06-21 10:55 | disposition home or self-care (01) ==
LOC: ENDO 07:35
PROVIDERS: Family Provider Family Medicine; PCP Family Medicine; Referring Provider Surgery; Visit Provider Surgery
PROC: 0DJ08ZZ Inspection of Upper Intestinal Tract, Via Natural or Artificial Opening Endoscopic (ICD-10-PCS; CPT 43235; principal; 2021-06-21 08:45)
DX: R13.10 Dysphagia, unspecified (principal); R07.9 Chest pain, unspecified; K44.9 Diaphragmatic hernia without obstruction or gangrene; K31.7 Polyp of stomach and duodenum
CPT/HCPCS: 43239; 99152; J2250; J3010

== ENCOUNTER → 2022-01-30 15:19 | Outpatient (CLI) | payer MEDICARE, OTHER, SELFPAY ==
[2021-06-22 13:52] VITALS: BMI 26.5
--- NOTE | 2022-01-30 15:22 | DI.MRI.S_ITS ---
PROCEDURE: MR LUMBAR SPINE WO CON INDICATIONS: Low back pain, unspecified TECHNIQUE: Noncontrast sagittal T1 spin echo and T2 fast echo, sagittal STIR, and T2 fast spin echo through the lumbar spine. In cases with scoliosis, additional coronal T2 fast spin echo may be performed. COMPARISON: [facility] Outside Film, MR, MR LUMBAR SPINE WITHOUT CONTRAST, 10/22/2017, 12:35. FINDINGS: Severe lumbar levoscoliosis centered at L1-L2. No significant listhesis. Vertebral body heights maintained. No suspicious focal marrow signal abnormality or edema. T12-L1: No spinal canal or neural foraminal stenosis. Mild bilateral neural foraminal stenosis. L1-L2: Disc bulge flattens the ventral thecal sac with mild displacement of the descending L2 nerve roots in both subarticular zones. The right L2 nerve roots are interposed between disc and facet material. Severe right and mild left neural foraminal stenosis due to foraminal components of the disc bulge and facet hypertrophy. L2-L3: Diffuse disc bulge with superimposed broad-based posterior disc protrusion flattens the ventral thecal sac without mass effect upon the traversing L3 nerve roots. Foraminal components of the disc bulge and facet hypertrophy combine to produce moderate bilateral neural foraminal stenosis, more so on the right where there is abutment and possible flattening of the exiting right L2 nerve root. L3-L4: Severe spinal canal and severe bilateral neural foraminal stenosis due to a combination of diffuse disc bulge with superimposed broad-based posterior disc protrusion, buckling of the ligamentum flavum, and facet hypertrophy. L4-L5: Diffuse disc bulge and superimposed broad-based posterior disc protrusion flattens and indents the ventral thecal sac producing moderate spinal canal and subarticular zone stenosis with displacement of the descending L5 nerve roots in both subarticular zones. Foraminal components of the disc bulge and facet hypertrophy combine to produce severe left and moderate right neural foraminal stenosis with abutment and flattening of the exiting left L4 nerve root. L5-S1: Diffuse disc bulge with displacement of the bilateral descending S1 nerve roots. Severe neural foraminal narrowing on the left with flattening of the exiting left L5 nerve roots. IMPRESSION: Overall severe lower lumbar spine degenerative changes. Varying degrees of neural foraminal and spinal canal stenosis as described above with multiple areas of likely focal nerve root impingement. Severe levoscoliosis. Dictated by: Roland Laurent M.D. on 01/30/2022 at 16:39 Approved by: Roland Laurent M.D. on 01/30/2022 at 16:44
== END ==
PROVIDERS: Family Provider Family Medicine; PCP Family Medicine; Referring Provider Physical Medicine & Rehabilitation; Visit Provider Physical Medicine & Rehabilitation
DX: M54.50 Low back pain, unspecified (principal); M48.061 Spinal stenosis, lumbar region without neurogenic claudication; M48.07 Spinal stenosis, lumbosacral region; M41.9 Scoliosis, unspecified
CPT/HCPCS: 72148

== ENCOUNTER → 2022-02-14 15:14 | Outpatient (CLI) | payer MEDICARE, OTHER, SELFPAY ==
[2021-06-22 13:52] VITALS: BMI 26.5
== END ==
PROVIDERS: Family Provider Family Medicine; PCP Family Medicine; Referring Provider Family Medicine; Visit Provider Family Medicine
DX: Z13.820 Encounter for screening for osteoporosis (principal); Z78.0 Asymptomatic menopausal state
CPT/HCPCS: 77081

== ENCOUNTER → 2022-04-11 11:27 | Outpatient (CLI) | payer MEDICARE, OTHER, SELFPAY ==
[2021-06-22 13:52] VITALS: BMI 26.5
[2022-04-11 14:28] LABS: Add Manual Diff / Slide Review NO; Basophils Absolute Auto 0 /uL (0-100); Basophils Percent Auto 0.2 % (0-2); Eosinophils Absolute Auto 100 /uL (0-450); Hematocrit 40.1 % (36-46); Hemoglobin 13.8 g/dL (12.0-16.0); Lymphocytes Absolute Auto 1800 /uL (1100-4500); Lymphocytes Percent Auto 33.3 % (25-40); Mean Corpuscular HGB Conc 34.5 % (30-36); Mean Corpuscular Hemoglobin 32.9 PG (26-34); Mean Corpuscular Volume 95.3 fL (80-100); Monocytes Absolute Auto 400 /uL (0-900); Monocytes Percent Auto 7.1 % (3-14); Neutrophils Absolute Auto 3100 /uL (1500-7000); Neutrophils Percent Auto 58.4 % (50-75); Platelet Count 219 X10^3/uL (150-400); Red Cell Distribution Width 13.9 % (11.6-14.8); White Blood Cell Count 5.3 X10^3/uL (4.5-11.0)
[2022-04-11 14:55] LABS: Hemoglobin A1C% w Est Avg Glu 5.7 % (4.0-6.0)
[2022-04-11 15:08] LABS: BUN Creatinine Ratio 21.1 (6-22); Blood Urea Nitrogen 12 mg/dL (7-17); Calcium 8.7 mg/dL (8.4-10.2); Carbon Dioxide 26 mmol/L (22-32); Chloride 101 mmol/L (98-107); Estimated Glomerular Filt Rate > 60 mL/min (>60); Glucose 83 mg/dL (80-110); HEMOLYSIS < 15 (0-50); Potassium 4.3 mmol/L (3.4-5.1); Sodium 135 mmol/L (137-145)
[2022-04-11 16:09] LABS: Appearance Urine UA CLEAR; Bilirubin Urine UA NEGATIVE (NEGATIVE); Color Urine UA YELLOW; Glucose Urine UA NEGATIVE (Negative); Ketones Urine UA NEGATIVE (NEGATIVE); Leukocyte Esterase Urine UA NEGATIVE (NEGATIVE); Nitrite Urine UA NEGATIVE (Negative); Occult Blood Urine UA NEGATIVE (Negative); Protein Urine UA NEGATIVE (Negative); Urobilinogen Urine UA 0.2 E.U./dL (0.2)
[2022-04-11 16:17] LABS: pH Urine UA 5.5 (4.5-8.0)
[2022-04-11 16:29] LABS: Bacteria Urine None Seen; Culture Indicated Urine Cult Not Indicated; RBC Urine 0-1/HPF (0-5/HPF); WBC Urine 0-1/HPF (0-5/HPF)
== END ==
PROVIDERS: Family Provider Family Medicine; PCP Family Medicine; Referring Provider Orthopaedic Surgery; Visit Provider Orthopaedic Surgery
DX: Z01.818 Encounter for other preprocedural examination (principal); R73.9 Hyperglycemia, unspecified; Z01.812 Encounter for preprocedural laboratory examination; N39.0 Urinary tract infection, site not specified
CPT/HCPCS: 36415; 80048; 81001; 83036; 85025; 93005; 93010

== ENCOUNTER 2023-01-07 17:48 | Emergency (ER) | payer MEDICARE, OTHER, SELFPAY ==
[2021-06-22 13:52] VITALS: BMI 26.5
[2023-01-07 17:50] VITALS: BP 114/70; PULSE 89; RESP 16; TEMP 36.6; O2SAT 97; BMI 26.3
[2023-01-07 18:44] LABS: Appearance Urine UA SL CLOUDY; Bilirubin Urine UA 1+ (NEGATIVE); Color Urine UA RED; Glucose Urine UA NEGATIVE (Negative); Ketones Urine UA NEGATIVE (NEGATIVE); Leukocyte Esterase Urine UA 1+ (NEGATIVE); Nitrite Urine UA POSITIVE (Negative); Occult Blood Urine UA 3+ (Negative); Protein Urine UA 3+ (Negative)
--- NOTE | 2023-01-07 18:47 | ED_ITS ---
HPI - General Adult General Chief complaint: Urogenital-Female Stated complaint: UTI, blood in urine for a few days Time Seen by Provider: 01/07/23 18:03 Source: patient Mode of arrival: Ambulatory History of Present Illness HPI narrative: 82-year-old female former smoker with history of GERD presents for evaluation of ongoing urinary symptoms since December 11. It is reported that she has had 2 courses of antibiotics, most recently Bactrim which finished this morning and started passing small clots in the urine last night. She is unable to recall which antibiotic she was placed on first. Last week she followed up with her PCP who took another urine test and found evidence of infection and put her on 5 days of Bactrim which (as noted above) she just finished this morning. She denies any systemic complaints such as dizziness, weakness or lightheadedness. She has no fever or chills, she denies nausea, vomiting or diarrhea, she denies any back pain. She states that her dysuria, frequency and urgency is slightly better but the hematuria just started. Related Data Home Medications Medication Instructions Recorded Confirmed diclofenac sodium 1 % topical gel 2 g topical BID 01/15/21 06/07/21 (Voltaren Arthritis Pain) diphenhydramine HCl 25 mg capsule 12.5 mg PO BEDTIME Sleep 01/15/21 06/21/21 (Benadryl) simvastatin 20 mg tablet 20 mg PO BEDTIME 01/15/21 06/07/21 solifenacin 5 mg tablet (Vesicare) 5 mg PO DAILY 01/15/21 06/07/21 acetaminophen 500 mg tablet 500 mg PO DAILY 06/07/21 06/21/21 omeprazole 20 mg capsule,delayed 20 mg PO BID 06/07/21 06/21/21 release tramadol 50 mg tablet 25 mg PO DAILY 06/07/21 06/21/21 Previous Rx's Medication Instructions Recorded sulfamethoxazole 800 1 tab PO BID 5 days #10 tabs 01/07/23 mg-trimethoprim 160 mg tablet (Bactrim DS) Allergies Allergy/AdvReac Type Severity Reaction Status Date / Time No Known Drug Allergies Allergy Verified 06/21/21 07:51 Review of Systems Review of Systems Narrative: GENERAL: Denies chills, fatigue, malaise, fever, sweats. HEENT: Denies sinus pain, ear pain, sore throat, difficulty swallowing, dizziness. RESPIRATORY: Denies dyspnea, cough, wheezing, hemoptysis, sputum. CARDIOVASCULAR: Denies chest pain, palpitations, orthopnea, edema, GASTROINTESTINAL: Denies nausea, vomiting, abdominal pain, diarrhea, constipation, melena. : Denies dysuria, frequency, incontinence, hematuria, urinary retention. MUSCULOSKELETAL: denies weakness, joint pain, or bony pain SKIN: Denies rash, skin lesions, or other NEUROLOGIC: Denies weakness, headache, numbness, change in speech, confusion, seizures, incoordination. PSYCHIATRIC: No concerning psychosocial issues. 12 point review of systems is negative except for those stated above Patient History Medical History (Updated 01/07/23 @ 19:44 by Andres Jeronimo DO) Chronic back pain Difficulty swallowing (~2016) Dysphagia Eczema History of esophageal dilatation HLD (hyperlipidemia) Osteoarthritis Surgical History History of arthroplasty of right shoulder History of colonoscopy (2017) History of esophagogastroduodenoscopy (EGD) (2016) History of hysterectomy History of prosthetic unicompartmental arthroplasty of right knee (05/2020) History of total right hip arthroplasty Hx of bilateral cataract extraction Hx of tonsillectomy Social History (Updated 06/07/21 @ 10:12 by Milka Ricks RN) marital status: household members: spouse Previous occupational history: retired Smoking Status: Former smoker Tobacco: How many years used: 1 alcohol intake: current Smoking Status: Former smoker alcohol intake frequency: a few times a month Substance Use Type: does not use Exam Initial Vital Signs Initial Vital Signs: Vital Signs Temperature 98 F 01/07/23 17:50 Pulse Rate 89 01/07/23 17:50 Respiratory Rate 16 01/07/23 17:50 Blood Pressure 114/70 01/07/23 17:50 Pulse Oximetry 97 01/07/23 17:50 Oxygen Delivery Method Room Air 01/07/23 17:50 Course Orders Ordered: Discontinued Medications Trimethoprim/Sulfamethoxazole (Trimeth/Sulfa 160/800 (Ds) Tablet) 1 tab PO NOW ONE Stop: 01/07/23 19:36 Last Admin: 01/07/23 19:41 Dose: 1 tab Documented By: AP Vital Signs Vital signs: Vital Signs - 8 hr 01/07/23 17:50 Temperature 98 F Pulse Rate 89 Respiratory Rate 16 Blood Pressure 114/70 Pulse Oximetry 97 Oxygen Delivery Method Room Air Medical Decision Making Lab Data Labs: Lab Results 01/07/23 Range/Units 17:55 Urine Color Red Urine Appearance Sl cloudy Urine pH 7.0 (4.5-8.0) Ur Specific [place] 1.010 (1.000-1.035) Urine Protein 3+ H (Negative) Urine Glucose (UA) Negative (Negative) g/dL Urine Ketones Negative (NEGATIVE) Urine Occult Blood 3+ H (Negative) Urine Nitrate Positive H (Negative) Urine Bilirubin 1+ H (NEGATIVE) Ur Bilirubin Confirm Negative (Negative) Urine Urobilinogen 1.0 (0.2) E.U./dL Ur Leukocyte Esterase 1+ H (NEGATIVE) Urine RBC >100/hpf H (0-5/HPF) Urine WBC 1-5/hpf (0-5/HPF) Ur Squamous Epith Cells 0-1 /hpf (0-5/HPF) Urine Bacteria Few (2-10) H (None) Ur Culture Indicated? Specimen cultured MDM Narrative Medical decision making narrative: CC: 82F with known uti presents with hematuria Complicating co-morbidities: age, known UTI Data collected from: Patient Medical records reviewed: Prior notes reviewed in our EMR Differential considered, but not limited to: UTI, kidney stone, vs. other Exam documented above, pertinent findings include: no signs of sepsis, no flank pain, heart rate regular, lungs clean, abdomen soft Lab Test results independently reviewed as above. Pertinent findings: urine with blood and evidence of UTI Consultations: discussed with Dr. 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 ABX choice made on prior history, no culture. Recommends extending current ABX and will follow cx Treatments: Bactrim DS Discussion: Patient with known UTI has symptoms of largely improved over the st 5 days but presents with painless hematuria. Urine convincing for UTI with hematuria. She denies systemic complaints such as dizziness, weakness or lightheadedness, no flank pain or vomiting, no signs of sepsis. Discussed with PCP and bacteria based on prior exposure, no current cultures, we did obtain a culture today and will extend duration of Bactrim. Patient given return precautions Disposition: see below, along with detailed discharge instructions that have been reviewed with patient as well as indications for ED re-evaluation and additional outpatient follow up Discharge Plan Departure Patient Disposition: Home Clinical Impression: Acute UTI, Hematuria Instructions: DI for Urinary Tract Infection (UTI), DI for Hematuria Activity Restrictions/Additional Instructions: *You have been diagnosed with [UTI with hematuria] *What to do: *Please continue to take your regular medications as directed. [x ] New medication prescriptions sent to your pharmacy: [ [facility]] [ ] New medication written as a paper prescription [ ] No new medications given *Please follow up with your primary care provider in 2-3 days, call for an appointment. Let them know you were seen in the Emergency Department and that we ask that you be seen in follow up. We will electronically transmit a record of today's note if your PCP is in our system *Return to Emergency Department if you should have any new, worsening or concerning symptoms, such as [fever greater than 101 F, shaking chills, worsening pain, persistent vomiting or other bothersome symptoms] We have sent your urine for culture today and if the results would indicate you need a change we will call you Prescriptions: New sulfamethoxazole-trimethoprim [Bactrim DS] 800-160 mg tablet 1 tab PO BID 5 Days Qty: 10 0RF No Action tramadol 50 mg tablet 25 mg PO DAILY simvastatin 20 mg Tablet 20 mg PO BEDTIME diphenhydramine HCl [Benadryl] 25 mg Capsule 12.5 mg PO BEDTIME solifenacin [Vesicare] 5 mg Tablet 5 mg PO DAILY diclofenac sodium [Voltaren Arthritis Pain] 1 % Gel 2 g TOPICAL BID acetaminophen 500 mg tablet 500 mg PO DAILY omeprazole 20 mg capsule,delayed release(DR/EC) 20 mg PO BID Referrals: Kenton Rojo MD [Primary Care Provider] - Stand Alone Forms: Patient Portal/API
[2023-01-07 18:58] LABS: Ictotest Urine Negative (Negative)
[2023-01-07 18:59] LABS: Bacteria Urine Few (2-10); Culture Indicated Urine Specimen Cultured; RBC Urine >100/HPF (0-5/HPF); Squamous Epithelial Cell Urine 0-1 /HPF (0-5/HPF); WBC Urine 1-5/HPF (0-5/HPF)
[2023-01-07] MEDS: TRIMETH/SULFA 160/800 (DS) TABLET 1 TAB PO (19:41)
[2023-01-07 19:50] VITALS: BP 121/75; PULSE 80; RESP 18; O2SAT 98
== END 2023-01-07 19:51 | disposition home or self-care (01) ==
PROVIDERS: Emergency Provider Emergency Medicine; Family Provider Family Medicine; PCP Family Medicine
DX: N39.0 Urinary tract infection, site not specified (principal); R31.9 Hematuria, unspecified
CPT/HCPCS: 81001; 87086; 99283

== ENCOUNTER 2023-01-28 17:10 | Emergency (ER) | payer MEDICARE, OTHER, SELFPAY ==
[2021-06-22 13:52] VITALS: BMI 26.5
[2023-01-28 17:29] VITALS: BP 144/80; PULSE 111; RESP 18; TEMP 36.7; O2SAT 97; BMI 26.9
[2023-01-28 19:54] VITALS: BP 145/70; PULSE 113; RESP 16; O2SAT 97
[2023-01-28 20:12] LABS: Bacteria Urine Many (>30); RBC Urine 30-100/HPF (0-5/HPF); Renal Epithelial Cells Urine 0-1/HPF (0-1/HPF); Squamous Epithelial Cell Urine 0-1 /HPF (0-5/HPF); Transitional Epi Cells Urine 0-1/HPF (0-5/HPF); WBC Urine 30-100/HPF (0-5/HPF)
[2023-01-28 20:13] LABS: Culture Indicated Urine Specimen Cultured
--- NOTE | 2023-01-28 20:23 | ED.FEMALEGU ---
HPI - Female Genitourinary General Chief complaint: Urogenital-Female Stated complaint: urinary issues, UTI for 6 weeks Time Seen by Provider: 01/28/23 20:23 Source: patient Mode of arrival: Family Vehicle Limitations: no limitations History of Present Illness HPI Narrative: This is an 82-year-old female on medication for dyslipidemia, GERD and urination. Patient states starting in November she started having hematuria she was treated for a UTI at that time. She states it resolved in several weeks ago started having hematuria intermittently. She is had several negative urine cultures since then. Patient states today started having hematuria but also dysuria, urgency and frequency. No fevers she is felt chilled. No chest pain or shortness of breath. No nausea or vomiting, no diarrhea or constipation. Patient's states she is had multiple orthopedic surgeries, she is had hysterectomy. She denies any drug allergies. Dr. Rojo is her primary care. She is not had any imaging of her bladder or kidneys. They are trying to set her up with Urology but has not been set up yet. Related Data Home Medications Medication Instructions Recorded Confirmed diclofenac sodium 1 % topical gel 2 g topical BID 01/15/21 06/07/21 (Voltaren Arthritis Pain) diphenhydramine HCl 25 mg capsule 12.5 mg PO BEDTIME Sleep 01/15/21 06/21/21 (Benadryl) simvastatin 20 mg tablet 20 mg PO BEDTIME 01/15/21 06/07/21 solifenacin 5 mg tablet (Vesicare) 5 mg PO DAILY 01/15/21 06/07/21 acetaminophen 500 mg tablet 500 mg PO DAILY 06/07/21 06/21/21 omeprazole 20 mg capsule,delayed 20 mg PO BID 06/07/21 06/21/21 release tramadol 50 mg tablet 25 mg PO DAILY 06/07/21 06/21/21 Previous Rx's Medication Instructions Recorded nitrofurantoin 100 mg PO Q12H 7 days #14 caps 01/28/23 monohydrate/macrocrystals 100 mg capsule (Macrobid) phenazopyridine 200 mg tablet 200 mg PO TID PRN pain #6 tabs 01/28/23 (Pyridium) Allergies Allergy/AdvReac Type Severity Reaction Status Date / Time No Known Drug Allergies Allergy Verified 01/28/23 17:34 Review of Systems Review of Systems ROS Unobtainable: All systems reviewed & are unremarkable except as noted in HPI and below Patient History Medical History Chronic back pain Difficulty swallowing (~2017) Dysphagia Eczema History of esophageal dilatation HLD (hyperlipidemia) Osteoarthritis Surgical History History of arthroplasty of right shoulder History of colonoscopy (2017) History of esophagogastroduodenoscopy (EGD) (2017) History of hysterectomy History of prosthetic unicompartmental arthroplasty of right knee (05/2020) History of total right hip arthroplasty Hx of bilateral cataract extraction Hx of tonsillectomy alcohol intake frequency: a few times a month Substance Use Type: does not use Exam Narrative Exam Narrative: GENERAL: Alert and oriented x three, elderly female in mild distress. HEENT: Head normocephalic, atraumatic, EOMI, pupils reactive, face symmetric, moist mucous membranes NECK: Supple, full range of motion CARDIOVASCULAR: Regular rate and rhythm without murmurs, rubs or gallops. RESPIRATORY: Breath sounds equal bilaterally, no wheezes rales or rhonchi. ABDOMEN: Soft, nontender. Normoactive bowel sounds all 4 quadrants. No guarding or rebound, rigidity, no mass, nondistended. : No CVA tenderness EXTREMITIES: Normal range of motion, no clubbing or edema. Neurovascularly intact NEUROLOGICAL: Cranial nerves II through XII grossly intact. Moving all extremities SKIN: Warm, dry, no petechiae, no rashes or lesions. Initial Vital Signs Initial Vital Signs: Vital Signs Temperature 98.1 F 01/28/23 17:29 Pulse Rate 111 H 01/28/23 17:29 Respiratory Rate 18 01/28/23 17:29 Blood Pressure 144/80 H 01/28/23 17:29 Pulse Oximetry 97 01/28/23 17:29 Oxygen Delivery Method Room Air 01/28/23 17:29 Course Orders Ordered: ED Orders 01/28/23 20:24 EKG-12 Lead Stat 01/28/23 20:30 Blood Culture Stat Complete Blood Count AUTO DIFF Stat Comprehensive Metabolic Panel Stat Lactate (Lactic Acid) Stat Lipase Stat PTT Partial Thromboplastin Christian Stat Procalcitonin Stat Prothrombin Time INR Stat 01/28/23 20:40 CT kidney ureter bladder (KUB) Stat Discontinued Medications Sodium Chloride (Normal Saline 0.9%) 1,000 mls @ 1,000 mls/hr IV BOLUS ONE Stop: 01/28/23 21:39 Last Infusion: 01/28/23 22:19 Dose: 0 mls/hr Documented By: Admin: 01/28/23 20:43 Dose: 1,000 mls/hr Documented By: ASHLY Nitrofurantoin Macrocrystals (Nitrofurantoin Er 100 Mg Capsule) 100 mg PO NOW ONE Stop: 01/28/23 22:46 Last Admin: 01/28/23 22:51 Dose: 100 mg Documented By: CHERYL Ondansetron HCl (Ondansetron 4 Mg Odt) 4 mg SL NOW PRN PRN Reason: Nausea And Vomiting Ondansetron HCl (Ondansetron 4 Mg/2 Ml Inj) 4 mg IV NOW PRN PRN Reason: Nausea And Vomiting Phenazopyridine HCl (Phenazopyridine 100 Mg Tablet) 200 mg PO NOW ONE Stop: 01/28/23 20:43 Last Admin: 01/28/23 21:27 Dose: 200 mg Documented By: ASHLY Vital Signs Vital signs: Vital Signs - 8 hr 01/28/23 21:28 Pulse Rate 86 Respiratory Rate 16 Pulse Oximetry 98 Oxygen Delivery Method Room Air MDM - Female Genitourinary Lab Data 01/28/23 20:30 01/28/23 20:30 Labs: Lab Results 01/28/23 01/28/23 01/28/23 Range/Units 18:59 20:30 20:30 WBC 7.0 (4.5-11.0) X10^3/uL RBC 4.09 (4.0-5.2) X10^6/uL Hgb 13.1 (12.0-16.0) g/dL Hct 38.8 (36-46) % MCV 94.9 (80-100) fL MCH 32.1 (26-34) PG MCHC 33.8 (30-36) % RDW 14.4 (11.6-14.8) % Plt Count 270 (150-400) X10^3/uL Neut % (Auto) 72.2 (50-75) % Lymph % (Auto) 18.7 L (25-40) % [place] % (Auto) 7.9 (3-14) % Eos % (Auto) 0.7 L (2-4) % Baso % (Auto) 0.5 (0-2) % Neut # (Auto) 5100 (9474-8859) /uL Lymph # (Auto) 1300 (3765-5434) /uL [place] # (Auto) 600 (0-900) /uL Eos # (Auto) 0 (0-450) /uL Baso # (Auto) 0 (0-100) /uL PT 11.2 (10.1-12.7) SECONDS INR 1.0 (0.9-1.3) APTT 27 (26-36) SECONDS Sodium (137-145) mmol/L Potassium (3.4-5.1) mmol/L Chloride (98-107) mmol/L Carbon Dioxide (22-32) mmol/L BUN (7-17) mg/dL Creatinine (0.52-1.04) mg/dL Estimated GFR (>60) mL/min BUN/Creatinine Ratio (6-22) Glucose (80-110) mg/dL Lactate (0.7-2.1) mmol/L Calcium (8.4-10.2) mg/dL Total Bilirubin (0.2-1.3) mg/dL AST (14-36) IU/L ALT (<35) IU/L Alkaline Phosphatase (38-126) U/L Total Protein (6.3-8.2) g/dL Albumin (3.5-5.0) g/dL Globulin (1.7-4.1) g/dL Albumin/Globulin Ratio (1.0-2.8) Lipase (23-300) U/L Procalcitonin (<0.5) ng/mL Urine RBC 30-100/hpf H (0-5/HPF) Urine WBC 30-100/hpf H (0-5/HPF) Ur Squamous Epith Cells 0-1 /hpf (0-5/HPF) Ur Transition Epith Cell 0-1/hpf (0-5/HPF) Ur Renal Epithelial Cell 0-1/hpf (0-1/HPF) Urine Bacteria Many (>30) H (None) Ur Culture Indicated? Specimen cultured 01/28/23 01/28/23 Range/Units 20:30 20:30 WBC (4.5-11.0) X10^3/uL RBC (4.0-5.2) X10^6/uL Hgb (12.0-16.0) g/dL Hct (36-46) % MCV (80-100) fL MCH (26-34) PG MCHC (30-36) % RDW (11.6-14.8) % Plt Count (150-400) X10^3/uL Neut % (Auto) (50-75) % Lymph % (Auto) (25-40) % [place] % (Auto) (3-14) % Eos % (Auto) (2-4) % Baso % (Auto) (0-2) % Neut # (Auto) (3582-8225) /uL Lymph # (Auto) (1730-4925) /uL [place] # (Auto) (0-900) /uL Eos # (Auto) (0-450) /uL Baso # (Auto) (0-100) /uL PT (10.1-12.7) SECONDS INR (0.9-1.3) APTT (26-36) SECONDS Sodium 137 (137-145) mmol/L Potassium 3.7 (3.4-5.1) mmol/L Chloride 104 (98-107) mmol/L Carbon Dioxide 25 (22-32) mmol/L BUN 23 H (7-17) mg/dL Creatinine 0.66 (0.52-1.04) mg/dL Estimated GFR > 60 (>60) mL/min BUN/Creatinine Ratio 34.8 H (6-22) Glucose 106 (80-110) mg/dL Lactate 1.5 (0.7-2.1) mmol/L Calcium 8.8 (8.4-10.2) mg/dL Total Bilirubin 0.6 (0.2-1.3) mg/dL AST 31 (14-36) IU/L ALT 21 (<35) IU/L Alkaline Phosphatase 81 (38-126) U/L Total Protein 7.8 (6.3-8.2) g/dL Albumin 4.5 (3.5-5.0) g/dL Globulin 3.3 (1.7-4.1) g/dL Albumin/Globulin Ratio 1.4 (1.0-2.8) Lipase 103 (23-300) U/L Procalcitonin 0.04 (<0.5) ng/mL Urine RBC (0-5/HPF) Urine WBC (0-5/HPF) Ur Squamous Epith Cells (0-5/HPF) Ur Transition Epith Cell (0-5/HPF) Ur Renal Epithelial Cell (0-1/HPF) Urine Bacteria (None) Ur Culture Indicated? Urine Dip Bedside Urine Glucose Negative Bedside Urine Bilirubin - Negative Bedside Urine Ketone - Negative Urine Specific [place] 1.030 Bedside Urine Occult Blood +++ Bedside Urine pH 6.0 Bedside Urine Protein ++ 100 Bedside Urine Urobilinogen - Negative Bedside Urine Nitrite + Positive Bedside Urine Leukocytes ++ [address] scan - abdomen/pelvis: Radiologist's Impression: [address] [address] [address] Scan Report Signed Patient: Theresa Montiel MR#: [id number] : 1940 Acct:[id number] Age/Sex: 82 / F Date of Service: 01/28/23 Loc: ED Accession Number: [id number] ?? Procedure: CT kidney ureter bladder (KUB) Ordering Provider: Debi Segura D.O. PROCEDURE:? CT KIDNEY URETER BLADDER (KUB) ? INDICATIONS:? hematuria, intermittent, negative cultures sometimes ? TECHNIQUE:? Axial sections were acquired from the lung bases to the pubic symphysis.? Coronal and sagittal reformats were performed.? For radiation dose reduction, the following was used: ?automated exposure control, adjustment of mA and/or kV according to patient size.? ? COMPARISON:? [facility], MR, MR LUMBAR SPINE WO CON, 01/30/2022, 15:35. ? FINDINGS:? Image quality:? There is mild motion artifact as well as extensive metallic streak artifact in the pelvis secondary to patient's hip prostheses limiting evaluation.? ? Lung bases:? There is mild atelectasis and scarring in the lung bases. Heart:? Heart is normal in size. ? URINARY: Right Kidney and Ureter: ? No stones or hydronephrosis.? No hydroureter.? The distal ureter is not well visualized due to streak artifact. ? Left Kidney and Ureter: ? No hydronephrosis.? There is a punctate nonobstructing left renal stone.? No hydroureter.? The distal ureter is not well visualized due to streak artifact. ? Bladder:? Bladder not well visualized due to streak artifact in the pelvis. ? ABDOMEN: Liver:? Noncontrast evaluation of the liver demonstrates 2 small cysts in the right hepatic lobe as well as additional small low-density foci which are too small to characterize but likely represent cysts. Gallbladder:? Within normal limits without calcified gallstones.? ? Biliary ducts:? No biliary ductal dilatation.? ? Pancreas:? Unremarkable.? ? Spleen:? Normal in size.? ? Adrenal Glands:? No adrenal nodules.? ? ? Stomach and Bowel:? Stomach, small bowel loops, and colon are normal in caliber and wall thickness.? No pericecal inflammatory changes to suggest appendicitis.? Peritoneum:? No abnormal intraperitoneal fluid.? No free air.? ? Ventral Wall: ? No hernia.? Abdominal Nodes:? No retroperitoneal or mesenteric adenopathy by size criteria.? Vessels:? Aorta and inferior vena cava are normal in size.? ? PELVIS: Pelvic Organs:? Unremarkable.? ? Pelvic Nodes: No enlarged lymph nodes.? Miscellaneous: No inguinal hernias identified. ? ? ? Bones:? There is mild superior endplate scalloping of the L4 vertebral body which appears unchanged from the prior MRI.? Visualized osseous structures demonstrate no suspicious focal lesions. IMPRESSION:? ? 1. No evidence of obstructive uropathy. ? 2. Punctate nonobstructing left renal stone.? ? 3. Limited evaluation in the pelvis due to streak artifact from patient's hip prostheses. ? ? Dictated by: Arley Garnett M.D. on 01/28/2023 at 21:50 ? ? Approved by: Arley Garnett M.D. on 01/28/2023 at 22:12?? ECG Data Attestation: I personally reviewed and interpreted this ECG as follows: Interpretation: Sinus rhythm rate of 97 TN 146 QRS is 70 QTC 452. Nonspecific change. MDM Narrative Medical decision making narrative: This is an 82-year-old female who appears to have UTI symptoms she is had hematuria, she does note she is had negative urine cultures with hematuria over the past several months. Patient was tachycardic and has had some chills. She describes symptoms consistent with UTI no significant worsening flank pain. CT imaging does not show any changes to kidneys or bladder such as mass or other changes. Urine today does appear infected. Labs are overall reassuring patient was slightly tachycardic but appears improved with some fluids. Patient felt appropriate for discharge home with oral antibiotics with strict return precautions. Discharge Plan Departure Patient Disposition: Home Clinical Impression: Hematuria, Acute UTI Instructions: DI for Urinary Tract Infection (UTI) Activity Restrictions/Additional Instructions: Your urine today is suspicious for bladder infection, urine culture is pending. Your imaging does not show any changes to the bladder or kidneys but if you are having persistent hematuria without infection you do need follow-up for cystoscopy with Urology. Please take antibiotics until completely gone. You may take Pyridium 1 tablet every 8 hours as needed for bladder spasm/urinary discomfort. Prescription sent to [facility] in [place]. Please return for fevers new or worsening abdominal back or flank pain, vomiting, lightheadedness or passing out, increasing difficulty with urinating, or other new or concerning changes Prescriptions: New phenazopyridine [Pyridium] 200 mg tablet 200 mg PO TID PRN (Reason: pain) Qty: 6 0RF nitrofurantoin monohyd/m-cryst [Macrobid] 100 mg capsule 100 mg PO Q12H 7 Days Qty: 14 0RF Rx Instructions: must administer with a meal/food No Action tramadol 50 mg tablet 25 mg PO DAILY simvastatin 20 mg Tablet 20 mg PO BEDTIME diphenhydramine HCl [Benadryl] 25 mg Capsule 12.5 mg PO BEDTIME solifenacin [Vesicare] 5 mg Tablet 5 mg PO DAILY diclofenac sodium [Voltaren Arthritis Pain] 1 % Gel 2 g TOPICAL BID acetaminophen 500 mg tablet 500 mg PO DAILY omeprazole 20 mg capsule,delayed release(DR/EC) 20 mg PO BID Referrals: Kenton Rojo MD [Primary Care Provider] - Stand Alone Forms: Patient Portal/API
--- NOTE | 2023-01-28 20:40 | DI.CT.S_ITS ---
PROCEDURE: CT KIDNEY URETER BLADDER (KUB) INDICATIONS: hematuria, intermittent, negative cultures sometimes TECHNIQUE: Axial sections were acquired from the lung bases to the pubic symphysis. Coronal and sagittal reformats were performed. For radiation dose reduction, the following was used: automated exposure control, adjustment of mA and/or kV according to patient size. COMPARISON: [facility], MR, MR LUMBAR SPINE WO CON, 01/30/2022, 15:35. FINDINGS: Image quality: There is mild motion artifact as well as extensive metallic streak artifact in the pelvis secondary to patient's hip prostheses limiting evaluation. Lung bases: There is mild atelectasis and scarring in the lung bases. Heart: Heart is normal in size. URINARY: Right Kidney and Ureter: No stones or hydronephrosis. No hydroureter. The distal ureter is not well visualized due to streak artifact. Left Kidney and Ureter: No hydronephrosis. There is a punctate nonobstructing left renal stone. No hydroureter. The distal ureter is not well visualized due to streak artifact. Bladder: Bladder not well visualized due to streak artifact in the pelvis. ABDOMEN: Liver: Noncontrast evaluation of the liver demonstrates 2 small cysts in the right hepatic lobe as well as additional small low-density foci which are too small to characterize but likely represent cysts. Gallbladder: Within normal limits without calcified gallstones. Biliary ducts: No biliary ductal dilatation. Pancreas: Unremarkable. Spleen: Normal in size. Adrenal Glands: No adrenal nodules. Stomach and Bowel: Stomach, small bowel loops, and colon are normal in caliber and wall thickness. No pericecal inflammatory changes to suggest appendicitis. Peritoneum: No abnormal intraperitoneal fluid. No free air. Ventral Wall: No hernia. Abdominal Nodes: No retroperitoneal or mesenteric adenopathy by size criteria. Vessels: Aorta and inferior vena cava are normal in size. PELVIS: Pelvic Organs: Unremarkable. Pelvic Nodes: No enlarged lymph nodes. Miscellaneous: No inguinal hernias identified. Bones: There is mild superior endplate scalloping of the L4 vertebral body which appears unchanged from the prior MRI. Visualized osseous structures demonstrate no suspicious focal lesions. IMPRESSION: 1. No evidence of obstructive uropathy. 2. Punctate nonobstructing left renal stone. 3. Limited evaluation in the pelvis due to streak artifact from patient's hip prostheses. Dictated by: Arley Garnett M.D. on 01/28/2023 at 21:50 Approved by: Arley Garnett M.D. on 01/28/2023 at 22:12
[2023-01-28] MEDS: SODIUM CHLORIDE 0.9% 1,000 ML 1000 ML IV (20:43)
[2023-01-28 20:56] LABS: Add Manual Diff / Slide Review NO; Basophils Absolute Auto 0 /uL (0-100); Basophils Percent Auto 0.5 % (0-2); Eosinophils Absolute Auto 0 /uL (0-450); Eosinophils Percent Auto 0.7 % (2-4); Hematocrit 38.8 % (36-46); Hemoglobin 13.1 g/dL (12.0-16.0); Lymphocytes Absolute Auto 1300 /uL (1100-4500); Lymphocytes Percent Auto 18.7 % (25-40); Mean Corpuscular HGB Conc 33.8 % (30-36); Mean Corpuscular Hemoglobin 32.1 PG (26-34); Mean Corpuscular Volume 94.9 fL (80-100); Monocytes Absolute Auto 600 /uL (0-900); Monocytes Percent Auto 7.9 % (3-14); Neutrophils Absolute Auto 5100 /uL (1500-7000); Neutrophils Percent Auto 72.2 % (50-75); Platelet Count 270 X10^3/uL (150-400); Red Blood Cell Count 4.09 X10^6/uL (4.0-5.2); Red Cell Distribution Width 14.4 % (11.6-14.8)
[2023-01-28 21:08] LABS: Prothrombin Time 11.2 SECONDS (10.1-12.7)
[2023-01-28 21:11] LABS: PTT Partial Thromboplastin Tim 27 SECONDS (26-36)
[2023-01-28 21:13] LABS: Alanine Aminotransferase 21 IU/L (<35); Albumin 4.5 g/dL (3.5-5.0); Albumin Globulin Ratio 1.4 (1.0-2.8); Alkaline Phosphatase 81 U/L (38-126); Aspartate Aminotransferase 31 IU/L (14-36); BUN Creatinine Ratio 34.8 (6-22); Bilirubin Total 0.6 mg/dL (0.2-1.3); Blood Urea Nitrogen 23 mg/dL (7-17); Calcium 8.8 mg/dL (8.4-10.2); Carbon Dioxide 25 mmol/L (22-32); Chloride 104 mmol/L (98-107); Estimated Glomerular Filt Rate > 60 mL/min (>60); Globulin 3.3 g/dL (1.7-4.1); Glucose 106 mg/dL (80-110); HEMOLYSIS < 15 (0-50); Lipase 103 U/L (23-300); Potassium 3.7 mmol/L (3.4-5.1); Sodium 137 mmol/L (137-145); Total Protein 7.8 g/dL (6.3-8.2)
[2023-01-28 21:14] LABS: Lactate (Lactic Acid) 1.5 mmol/L (0.7-2.1)
[2023-01-28] MEDS: PHENAZOPYRIDINE 100 MG TABLET 200 MG PO (21:27)
[2023-01-28 21:28] VITALS: PULSE 86; RESP 16; O2SAT 98
[2023-01-28 21:28] LABS: Procalcitonin 0.04 ng/mL (<0.5)
[2023-01-28] MEDS: NITROFURANTOIN ER 100 MG CAPSULE PO (22:51)
== END 2023-01-28 22:57 | disposition home or self-care (01) ==
PROVIDERS: Emergency Provider Emergency Medicine; Family Provider Family Medicine; PCP Family Medicine; Referring Provider Family Medicine
DX: N39.0 Urinary tract infection, site not specified (principal); R03.0 Elevated blood-pressure reading, without diagnosis of hypertension; R00.0 Tachycardia, unspecified
CPT/HCPCS: 36415; 74176; 80053; 81003; 81015; 83605; 83690; 84145; 85025; 85610; 85730; 87040; 87077; 87086; 87186; 93005; 93010; 99284

== ENCOUNTER → 2023-02-11 16:07 | Outpatient (CLI) | payer MEDICARE, OTHER, SELFPAY ==
[2021-06-22 13:52] VITALS: BMI 26.5
== END ==
PROVIDERS: Family Provider Family Medicine; PCP Family Medicine; Visit Provider Urology
DX: N39.0 Urinary tract infection, site not specified (principal); B96.20 Unspecified Escherichia coli [E. coli] as the cause of diseases classified elsewhere; R31.0 Gross hematuria; R30.0 Dysuria; N81.89 Other female genital prolapse; R39.15 Urgency of urination; Z77.22 Contact with and (suspected) exposure to environmental tobacco smoke (acute) (chronic)
CPT/HCPCS: 51798; 81002; 87086; 99214

== ENCOUNTER → 2023-02-26 11:16 | Outpatient (CLI) | payer MEDICARE, OTHER, SELFPAY ==
[2021-06-22 13:52] VITALS: BMI 26.5
== END ==
PROVIDERS: Family Provider Family Medicine; PCP Family Medicine; Visit Provider Urology
DX: R30.0 Dysuria (principal); R31.0 Gross hematuria; R31.29 Other microscopic hematuria
CPT/HCPCS: 81002; 87086

== ENCOUNTER → 2023-03-04 16:18 | Outpatient (CLI) | payer MEDICARE, OTHER, SELFPAY ==
[2021-06-22 13:52] VITALS: BMI 26.5
== END ==
PROVIDERS: Family Provider Family Medicine; PCP Family Medicine; Visit Provider Urology
DX: R31.29 Other microscopic hematuria (principal); R30.0 Dysuria
CPT/HCPCS: 51701; 87086

== ENCOUNTER → 2023-03-15 11:11 | Outpatient (CLI) | payer MEDICARE, OTHER, SELFPAY ==
[2021-06-22 13:52] VITALS: BMI 26.5
[2023-03-15 12:19] LABS: Appearance Urine UA CLOUDY; Bilirubin Urine UA 2+ (NEGATIVE); Color Urine UA BROWN; Glucose Urine UA TRACE g/dL (Negative); Ketones Urine UA TRACE (NEGATIVE); Leukocyte Esterase Urine UA 2+ (NEGATIVE); Nitrite Urine UA POSITIVE (Negative); Occult Blood Urine UA 3+ (Negative); Protein Urine UA 3+ (Negative); Specific Gravity Urine UA 1.025 (1.000-1.035)
[2023-03-15 12:26] LABS: Ictotest Urine Negative (Negative); pH Urine UA 6.5 (4.5-8.0)
[2023-03-15 12:27] LABS: Bacteria Urine Many (>30); Culture Indicated Urine Specimen Cultured; RBC Urine >100/HPF (0-5/HPF); Squamous Epithelial Cell Urine 5-10 /HPF (0-5/HPF); WBC Urine >100/HPF (0-5/HPF)
== END ==
PROVIDERS: Family Provider Family Medicine; PCP Family Medicine; Referring Provider Urology; Visit Provider Urology
DX: R30.0 Dysuria (principal); R31.0 Gross hematuria; R31.29 Other microscopic hematuria
CPT/HCPCS: 81001; 87077; 87086; 87186

== ENCOUNTER 2023-03-31 06:24 | Day surgery (SDC) | payer MEDICARE, OTHER, SELFPAY ==
[2021-06-22 13:52] VITALS: BMI 26.5
[2023-03-31] VITALS (11 sets, daily range): BP systolic 100–125; BP diastolic 55–72; PULSE 79–105; RESP 14–25; TEMP 36.8–37.2; O2SAT 92–96
--- NOTE | 2023-03-31 | PATH_ITS ---
[facility] Accession Number: [id number] No. of containers..01 Tissue . 01 Material submitted: . bladder - LEFT BLADDER WALL MASS . 01 Diagnosis: Urinary Bladder, Left Wall, Transurethral Resection: Undifferentiated sarcomatoid malignancy, consistent with invasive urothelial carcinoma, sarcomatoid variant. See comment. MRV 04/09/2023 1813 Local . 01 Comment: The specimen shows extensive necrosis. The viable tissue remaining consists exclusively of sheets of an undifferentiated sarcomatoid malignancy. A panel of immunostains is obtained, to further characterize, with the controls stained appropriately. The tumor shows the following results (block A5). . Broad spectrum cytokeratins (MAYRA): Uniformly positive. Cytokeratin 7: Focally positive. Cytokeratin 20: Negative. Cytokeratin 5/6: Focally positive. P63: Focally positive. GATA3: Variably positive. SOX-10: Negative. Desmin: Rare cell positive. . These immunophenotypic results in conjunction with the morphologic features are consistent with a sarcomatoid variant of a urothelial carcinoma, particularly in view of expression of the urothelial marker GATA3. In this case, high level expression with broad spectrum cytokeratins MAYRA rules against sarcoma or melanoma. . Regarding the depth of invasion of this sarcomatoid carcinoma, uninvolved bladder tissue, including muscularis propria, is not identified given that the specimen consists exclusively of completely necrotic tissue or sheets of tumor. Ultimately, the depth of invasion cannot be determined in this specimen given those aforementioned findings. Lymphovascular invasion is not seen. . * This test was developed and its performance characteristics determined by [facility]. It has not been cleared or approved by the U.S. Food and Drug Administration. The FDA has determined that such clearance or approval is not necessary. This test is used for clinical purposes. It should not be regarded as investigational or for research. . 01 Electronically signed: . Susanna Soria MD, Pathologist NPI- [id number] . 01 Gross description: . The specimen is received in formalin labeled with the patient's name, , and left bladder wall mass consists of multiple friable fragments of aguilera-key rubbery soft tissue aggregating to 8.5 x 6.3 x 0.7 cm and weighing 10 grams. The tissue is filtered into mesh bags and entirely submitted in cassettes A1-A8. ([id number]) /MRV 04/04/2023 1825 Local . 01 Pathologist provided ICD-10: C67.8 . 01 CPT . 918148, C22755, L63813 Specimen Comment: A courtesy copy of this report has been sent to [phone] Performed at: 01 [facility] [address] [place] [address], [place], [place] [id number] MD Arley Guzman MD Phone: [phone]
[2023-03-31] MEDS: LACTATED RINGERS 1,000 ML 21 ML IV ×2 (07:00→08:27)
--- NOTE | 2023-03-31 07:42 | PM.PREOP ---
Pre-operative Note COVID-19 COVID-19 status: Not tested Criteria for continued procedure: Delay expected to result in less-positive ultimate med/surg outcome and Non-surgical alternatives not available or appropriate per current SOC Interval Note History & Physical reviewed/Exam performed by Physician: Yes Changes to H&P: No
[2023-03-31] MEDS: CEFAZOLIN 2 GM/100 ML PREMIX 100 ML IV (07:55)
--- NOTE | 2023-03-31 08:11 | SUR.OPER ---
Lithotomy on padded OR bed, head on pillow, arms secured on padded arm boards at <90 degrees abduction. Legs secured in padded yellow fins stirrups.
[2023-03-31] MEDS: ACETAMINOPHEN IV 1,000 MG/100 ML VIAL 400 MG IV (08:17)
--- NOTE | 2023-03-31 08:52 | P.OP_ITS ---
Procedure & Clinicians Procedure: Cystoscopy with Transurethral resection of bladder mass/tumor (large) Same procedure as scheduled: Yes Indications: This 82-year-old female presented to Urology Clinic with complaints of gross and microscopic hematuria. She underwent workup and was found to have a large bladder mass which had a necrotic surface and did not appear typical for papillary urothelial carcinoma. There was also evidence that it may have an eroded into the anterior urethra and occupied a large portion if not all of the left side of the bladder. Patient presents this time for the above procedure to obtain tissue and see if it is possible to completely resect this appearing large mass. Surgeon: Vitaliy Gresham Click Yes if Unassisted: Yes Anesthesia Type: General Operative Notes Findings: Findings: Urethral meatus was normal there was introital narrowing. Within the urethra anteriorly there was necrotic debris and erosion in the proximal 3rd. There there appeared to be a mass effect and the scope had to be diverted posteriorly to enter the bladder. Immediately upon entering the bladder there was again the large mass which had a necrotic fibrinous appearing surface. The ureteral orifices could not be identified. There also appeared to be on the right anterior bladder wall either and extension or a separate mass. At resection under the fibrinous debris was a seemingly relatively avascular fleshy fish flesh or liver texture mass. There was some some vascularity encountered. It became apparent as the resection continued that it would not be possible to completely resect this very large tumor at least not at this section. So a large portion was resected in the samples collected and sent to pathology as left bladder wall mass. There were areas of normal mucosa mostly posterior to the right and then proceeding anteriorly on the right. The resected portions were collected and sent to pathology in formalin. The patient had a [address] placed with 12 cc in the balloon and hemostasis did appear to be good. Closure Type: not applicable Specimen(s): other (Left bladder wall mass resected fragments) Applied: catheter ([address] [place] with 12 cc in the balloon left in the bladder.) Estimated Blood Loss (mL): 10 Blood products transfused: none Procedure in detail: Procedure in detail: After informed consent was obtained, the patient was identified and brought to the operating room where she was placed in his supine position on the table. Once their anesthesia was induced and maintained. Ensuring an adequate level of anesthesia the patient was transitioned to the lithotomy position where she was prepped, draped, prepared for Transurethral procedure. After prepping, draping showing an adequate levels of anesthesia and time-out a 17 Serbian cystoscope was passed through the urethra and into the bladder where cystoscopy was performed with 30 and 70 degree lens. The cystoscope was then exchanged for continuous flow resectoscope. And using the loop the left sided bladder wall mass/tumor was resected to the level of my comfort. It was not a complete resection and in truth I am not sure that it could be completely resected. We will await the pathology and the patient may need other procedural and therapeutic intervention to resolve her situation. Again the fragments were then evacuated with the Prime Focus evacuator. Placed in formalin and sent to pathology. Patient then had the loop exchanged for a button and the points of bleeding were controlled with the button cautery. Bladder was then filled drained filled drained and hemostasis was good all fragments were gone the bladder was left full scope was removed and the 24 Serbian catheter passed through the urethra into the bladder. The balloon was filled with 12 cc of sterile water and the catheter was placed to gravity drainage. The patient was then awakened having tolerated the procedure well she was transitioned to the postanesthesia care unit for recovery. There were no complications Complications: none Post-operative Condition: stable Disposition: PACU Plan for aftercare: Follow-up my office approximately 10 days patient to go home with a catheter in place.
[2023-03-31] MEDS: HYDROMORPHONE 2 MG INJ IV ×2 (09:00→09:04)
[2023-03-31] MEDS: OXYBUTYNIN 5 MG TABLET PO (09:15)
[2023-03-31] MEDS: PHENAZOPYRIDINE 100 MG TABLET 200 MG PO (09:15)
[2023-03-31] MEDS: OXYCODONE IR 5 MG TABLET PO (09:16)
== END 2023-03-31 10:30 | disposition home or self-care (01) ==
PROVIDERS: Family Provider Family Medicine; PCP Family Medicine; Referring Provider Urology; Visit Provider Urology
PROC: 0TBB8ZZ Excision of Bladder, Via Natural or Artificial Opening Endoscopic (ICD-10-PCS; CPT 52240; principal; 2023-03-31 07:45)
DX: C67.8 Malignant neoplasm of overlapping sites of bladder (principal)
CPT/HCPCS: 52240; 82962; J0131; J0690; J1100; J1170; J2405; J2704; J3010

== ENCOUNTER → 2023-04-14 12:40 | Outpatient (CLI) | payer MEDICARE, OTHER, SELFPAY ==
[2021-06-22 13:52] VITALS: BMI 26.5
--- NOTE | 2023-04-14 12:41 | DI.CT.S_ITS ---
PROCEDURE: CT CHEST W CON INDICATIONS: New diagnosis sarcomatoid tumor bladder TECHNIQUE: After the administration of intravenous contrast, 5 mm thick sections acquired from the pulmonary apices to the posterior costophrenic angles. 1 mm axial lung, 5 mm thick coronal and sagittal reformats and 7 mm axial MIP were acquired. For radiation dose reduction, the following was used: automated exposure control, adjustment of mA and/or kV according to patient size. COMPARISON: [facility], CT, CT KIDNEY URETER BLADDER (KUB), 01/28/2023, 20:53. FINDINGS: Image quality: Excellent. Lungs and pleura: No acute air space opacities. No pleural effusions or pneumothorax. Central and peripheral airways are patent and normal in caliber. Multiple solid pulmonary nodules, concerning for metastatic disease. For example: -1.9 cm juxtapleural nodule in the superior left lower lobe, crossing the fissure (series 3, image 85). -1.5 cm juxtapleural nodule with lobulated margins, right lower lobe (series 3, image 129). -1.9 cm juxtapleural nodule, anterior right upper lobe (series 3, image 111). -0.8 cm juxtapleural nodule, anterior right upper lobe (series 3, image 120) Mediastinum: Heart size is normal. No pericardial effusion. No mediastinal or hilar adenopathy by size criteria. Thoracic aorta and central pulmonary arteries are normal in size. Esophagus is normal in caliber. Small hiatal hernia. Bones and chest wall: No suspicious bony lesions. No vertebral body compression fractures. No axillary or supraclavicular adenopathy by size criteria. Thyroid gland is unremarkable . Convex left scoliosis of the thoracolumbar spine. Abdomen: Low attenuating liver lesions, nonspecific. Small left Bochdalek hernia containing fat. IMPRESSION: Multiple juxtapleural pulmonary nodules within the chest, concerning for metastatic disease. Low attenuating liver lesions, which could be small cysts or metastatic disease. Dictated by: Harman Bird M.D. on 04/14/2023 at 16:31 Approved by: Harman Bird M.D. on 04/14/2023 at 16:36
[2023-04-14 14:13] LABS: BUN Creatinine Ratio 23.5 (6-22); Blood Urea Nitrogen 12 mg/dL (7-17); Calcium 8.8 mg/dL (8.4-10.2); Carbon Dioxide 26 mmol/L (22-32); Chloride 99 mmol/L (98-107); Estimated Glomerular Filt Rate > 60 mL/min (>60); Glucose 129 mg/dL (80-110); HEMOLYSIS < 15 (0-50); Potassium 2.9 mmol/L (3.4-5.1); Sodium 134 mmol/L (137-145)
== END ==
PROVIDERS: Family Provider Family Medicine; PCP Family Medicine; Referring Provider Urology; Visit Provider Urology
DX: Z01.812 Encounter for preprocedural laboratory examination (principal); C67.9 Malignant neoplasm of bladder, unspecified; R91.8 Other nonspecific abnormal finding of lung field; K76.9 Liver disease, unspecified
CPT/HCPCS: 36415; 71260; 80048; Q9967

== ENCOUNTER → 2023-04-15 11:10 | Outpatient (CLI) | payer MEDICARE, OTHER, SELFPAY ==
[2021-06-22 13:52] VITALS: BMI 26.5
== END ==
PROVIDERS: Family Provider Family Medicine; PCP Family Medicine; Visit Provider Urology
DX: C67.9 Malignant neoplasm of bladder, unspecified (principal); N30.01 Acute cystitis with hematuria; N81.89 Other female genital prolapse
CPT/HCPCS: 81002; 87077; 87086; 87186

== ENCOUNTER → 2023-05-10 10:42 | Outpatient (CLI) | payer MEDICARE, OTHER, SELFPAY ==
[2021-06-22 13:52] VITALS: BMI 26.5
--- NOTE | 2023-05-10 | DI.CT.S_ITS ---
PROCEDURE: CT IVP A/P W/WO INDICATIONS: BLADDER MASS TECHNIQUE: Optional 5 mm thick noncontrast images acquired from the diaphragm to the symphysis pubis. After the administration of intravenous contrast, 5 mm thick images acquired from the diaphragm to the symphysis pubis after a 10-minute delay. 2 mm thick coronal and sagittal reformats were then performed of the kidneys and ureters. For radiation dose reduction, the following was used: automated exposure control, adjustment of mA and/or kV according to patient size. COMPARISON: [facility], CT, CT KIDNEY URETER BLADDER (KUB), 01/28/2023, 20:53. [facility], CT, CT CHEST W CON, 04/14/2023, 14:49. FINDINGS: Image quality: There is artifact associated with the metallic hardware. Artifact from the metallic hardware is reduced by metal reconstruction algorithm. Lung bases: Lung masses are partially seen, with the largest seen involving the right upper lobe anteriorly, measuring up to 3.9 cm. Heart size is normal. Mild coronary artery calcification is seen. Urinary system: There is moderate to prominent left-sided hydroureter and hydronephrosis. Within the left kidney, there is a 2 mm nonobstructing stone. No right-sided kidney stones are seen. No right-sided hydronephrosis. Hyperdense material can be seen within the urinary bladder, a portion of which is believed to be hemorrhage in a portion of which is enhancing mass. The enhancing mass is believed to measure at least 5.5 cm craniocaudal. This is seen posteriorly on the left, which affects the left ureter. Other solid organs: Liver is normal in size and enhancement. Apparent liver cysts are seen. Gallbladder wall is not thickened . Biliary system is non dilated. Pancreas enhances normally. Spleen is normal in size and enhancement. No adrenal nodules. Peritoneum and bowel: Bowel loops demonstrate normal wall thickness and caliber. No free fluid or air. Nodes and vessels: No retroperitoneal or mesenteric adenopathy by size criteria. Aorta and inferior vena cava are normal in size. Abdominal wall: No ventral hernias. Pelvis: No pathologic free pelvic fluid. No inguinal hernias or adenopathy. Bones: There is at least moderate levoconvex lumbar scoliosis. There is a remote L4 compression deformity. Relatively prominent lumbar spine degenerative change is seen. No suspicious bony lesions. No vertebral body compression fractures. Bilateral hip arthroplasty hardware is seen, with associated streak artifact. IMPRESSION: Left-sided bladder mass seen. There is also clot within the bladder. It is difficult to distinguish the clot from the mass, although the bladder mass is believed to measure least 5.5 cm craniocaudal. - Please correlate with cystoscopy results. Associated left-sided hydroureter and hydronephrosis. Pulmonary masses are again seen, which are highly suspicious for metastatic disease. Low-density liver lesions are seen. These are attributed to cysts. Differential diagnosis includes additional metastatic disease, yet this is considered to be less likely. Additional findings: 2 mm nonobstructing left-sided kidney stone At least moderate levoconvex lumbar scoliosis Lumbar spine degenerative change Remote L4 compression deformity Bilateral hip arthroplasty hardware Dictated by: Ksahif Ayala M.D. on 05/10/2023 at 10:45 Approved by: Kashif Ayala M.D. on 05/10/2023 at 10:54
== END ==
PROVIDERS: Family Provider Family Medicine; PCP Family Medicine; Referring Provider Urology; Visit Provider Urology
DX: C67.9 Malignant neoplasm of bladder, unspecified (principal); R91.8 Other nonspecific abnormal finding of lung field; I25.10 Atherosclerotic heart disease of native coronary artery without angina pectoris; N13.30 Unspecified hydronephrosis; K76.9 Liver disease, unspecified; N20.0 Calculus of kidney; M41.9 Scoliosis, unspecified; M47.816 Spondylosis without myelopathy or radiculopathy, lumbar region; M43.8X6 Other specified deforming dorsopathies, lumbar region; Z96.643 Presence of artificial hip joint, bilateral
CPT/HCPCS: 74178; Q9967